=== PATIENT | female | born 1985 | race Caucasian/White ===

== ENCOUNTER → 2020-07-14 15:53 | Outpatient (BNVA) | payer BC, SELFPAY | PROVIDERS: PCP Family Medicine; Visit Provider Physician Assistant ==

== ENCOUNTER → 2020-07-15 07:10 | Outpatient (BNVA) | payer BC, SELFPAY | PROVIDERS: PCP Family Medicine; Visit Provider Surgery ==

== ENCOUNTER → 2020-07-27 14:57 | Outpatient (REF) | payer BC, SELFPAY ==
--- NOTE | ~2020-07-27 | XR_ITS ---
EXAMINATION: XR CHEST CLINICAL INFORMATION: Obesity COMPARISON: None TECHNIQUE: 2 views of the chest were obtained. FINDINGS: No significant abnormality is noted involving the heart, lungs, mediastinum, bony thorax or soft tissues. XR/XR chest 2V IMPRESSION: Unremarkable examination.
--- NOTE | 2020-07-27 15:52 | ECG_ITS ---
Test Reason : MORBID OBESITY Blood Pressure : / mmHG Vent. Rate : 082 BPM Atrial Rate : 082 BPM P-R Int : 128 ms QRS Dur : 082 ms QT Int : 368 ms P-R-T Axes : 041 050 013 degrees QTc Int : 429 ms Normal sinus rhythm Nonspecific T wave changes Borderline ECG No previous ECGs available Referred By: Taqueria Leal Electronically Signed By:Benny Gautam
[2020-07-28 14:26] LABS: H Pylori Breath Test NOT DETECTED (NOT DETECTED)
== END ==
LOC: HO.CARD 14:57
PROVIDERS: Absent Provider Surgery; PCP Family Medicine; Visit Provider Physician Assistant
DX: E66.01 Morbid (severe) obesity due to excess calories (principal); K21.9 Gastro-esophageal reflux disease without esophagitis; G47.10 Hypersomnia, unspecified
CPT/HCPCS: 71046; 83013; 93005

== ENCOUNTER → 2020-08-07 08:05 | Outpatient (BNVA) | payer BC, SELFPAY | PROVIDERS: PCP Family Medicine; Visit Provider Surgery ==

== ENCOUNTER → 2020-08-14 08:14 | Outpatient (BNVA) | payer BC, SELFPAY | PROVIDERS: PCP Family Medicine; Visit Provider Dietitian, Registered | DX: E66.01 Morbid (severe) obesity due to excess calories (principal) | CPT/HCPCS: 97802 ==

== ENCOUNTER → 2020-09-02 08:44 | Outpatient (BNVA) | payer BC, SELFPAY | PROVIDERS: PCP Family Medicine; Visit Provider Surgery ==

== ENCOUNTER 2020-09-05 07:46 | Outpatient (REF) | payer BC, SELFPAY ==
[2020-09-05 08:38] LABS: MANUAL DIFF FLAG NO
[2020-09-05 08:50] LABS: Basophils Absolute Auto 0.1 X10*3/uL (0.0-0.2); Basophils Percent Auto 0.7 % (0-2); Eosinophils Absolute Auto 0.1 X10*3/uL (0.0-0.4); Eosinophils Percent Auto 0.8 % (0-4); Hemoglobin 12.4 g/dl (12.0-16.0); Imm Gran Abs Auto 0.03 X10*3/uL (0.00-0.03); Imm Gran Pct Auto 0.3 % (0.0-0.4); Lymphocytes Absolute Auto 2.2 X10*3/uL (1.2-4.9); Lymphocytes Percent Auto 22.4 % (20-40); Mean Corpuscular Hemoglobin 24.7 pg (27.0-33.0); Mean Corpuscular Volume 79.7 fL (80-98); Mean Platelet Volume 10.8 fL (9.4-12.3); Monocytes Absolute Auto 0.7 X10*3/uL (0.1-1.2); Monocytes Percent Auto 7.4 % (2-11); Neutrophils Absolute Auto 6.7 X10*3/uL (2.0-8.3); Neutrophils Percent Auto 68.4 % (45-73); Platelet Count 391 X10*3/uL (160-400); Red Blood Count 5.02 X10*6/uL (4.20-5.50); Red Cell Distribution Width 15.8 % (11.0-16.0); White Blood Count 9.8 X10*3/uL (4.8-10.8)
[2020-09-05 09:41] LABS: Alanine Aminotransferase 14 U/L (0-31); Albumin Level 4.4 g/dL (3.5-5.0); Alkaline Phosphatase 98 U/L (39-117); Anion Gap 10 (12-20); Aspartate Amino Transferase 14 U/L (5-31); Bilirubin Total 0.4 mg/dL (0.0-1.0); Blood Urea Nitrogen 13 mg/dL (9-16); C Reactive Protein 2.33 mg/dL (< or = 0.50); Calcium 9.2 mg/dL (8.4-10.2); Carbon Dioxide 30 mmol/L (22-29); Chloride 105 mmol/L (96-108); Cholesterol 180 mg/dL; Estimated Glomerular Filt Rate > 60; Glucose Random 105 mg/dL (60-115); HDL Cholesterol 38 mg/dL; LDL Cholesterol Calculated 128 mg/dl; Potassium 4.3 mmol/L (3.3-5.1); Sodium 141 mmol/L (135-145); Total Protein 6.7 g/dL (6.5-8.0); Triglycerides 71 mg/dL
[2020-09-05 09:49] LABS: Estimated Average Glucose 120 mg/dL; Hemoglobin A1c % 5.8 %; TSH reflex Free T4 1.41 uIU/mL (0.32-4.0); Vitamin D 25-OH Total 49.8 ng/mL (>30)
[2020-09-05 10:44] LABS: Ferritin 20 ng/mL (10-122)
[2020-09-07 09:03] LABS: Vitamin B12 562 pg/mL (200-900)
[2020-09-07 13:16] LABS: Calcium (PTHI) 9.3 mg/dL (8.6-10.2); PTHI 53 pg/mL (14-64)
[2020-09-07 15:17] LABS: Insulin Level Total 13.2 uIU/mL
[2020-09-08 16:12] LABS: Zinc 70 mcg/dL (60-130)
[2020-09-08 21:22] LABS: Vitamin A 34 mcg/dL (38-98)
[2020-09-10 10:08] LABS: Vitamin B1 13 nmol/L (8-30)
== END 2020-09-05 07:47 | disposition home or self-care (01) ==
LOC: HO.LAB 07:46
PROVIDERS: Visit Provider Surgery
DX: E66.01 Morbid (severe) obesity due to excess calories (principal); G47.10 Hypersomnia, unspecified; K21.9 Gastro-esophageal reflux disease without esophagitis
CPT/HCPCS: 36415; 80053; 80061; 82306; 82607; 82728; 82746; 83036; 83525; 83970; 84425; 84443; 84590; 84630; 85025; 86140

== ENCOUNTER → 2020-09-08 08:06 | Outpatient (BNVA) | payer BC, SELFPAY | PROVIDERS: PCP Family Medicine; Visit Provider Dietitian, Registered | DX: E66.01 Morbid (severe) obesity due to excess calories (principal); Z68.42 Body mass index [BMI] 45.0-49.9, adult | CPT/HCPCS: 97803 ==

== ENCOUNTER → 2020-09-10 13:57 | Outpatient (REF) | payer BC, SELFPAY ==
--- NOTE | 2020-09-10 14:00 | CA_ITS ---
Transthoracic Echocardiogram Patient (Last, First, Middle): Carolyn Shen, Gender: Female Date of : 1985 Age: 35 Procedure Date: 09/10/2020 Procedure Type: Transthoracic Echocardiogram Location: OP Height: 175.26 cm Weight: 140.62 kg BSA: 2.49 m2 Heart Rate: bpm BP: 118 / 78 mmHg Colorist Dyer: VALDO Zamudio MD: Taqueria Leal MD Wall Washer: Keo Harmon MD Symptoms: R94.31 - Abnormal electrocardiogram [ECG] [EKG] Study Quality: Technically Difficult ECG Rhythm: Sinus Conclusions: - 1. Normal LV systolic and diastolic function 2. Normal cardiac valvular Doppler 3. No gross pericardial effusion Findings Left Ventricle Normal left ventricular size, thickness, and systolic function. The visually estimated ejection fraction is between 60-65%. Diastolic function is normal for age. Right Ventricle The right ventricle was not well visualized. Atria The left atrium is normal in size. Interatrial shunt cannot be excluded. The right atrium was not well visualized. Aortic Valve The aortic valve structure and function is likely normal. There is no aortic valve stenosis. There is no aortic valve regurgitation. Mitral Valve Likely normal mitral valve structure and function. There is trace mitral valve regurgitation. There is no mitral valve stenosis. Pulmonic Valve The pulmonic valve was not well visualized. Tricuspid Valve The tricuspid valve was not well visualized. The right ventricular systolic pressure is not calculated. Great Vessels All visible segments of the aorta are normal in size. The pulmonary artery was not well visualized. Venous The inferior vena cava is normal in size and collapses greater than 50% with inspiration. Pericardium/Pleural There is no evidence of pericardial effusion. Prior Study Comparison No prior study available for comparison. Measurements M-Mode Liner Measurements Normals - Women/Men AOV Cusps: 2.00 1.5-2.6 cm/m2 2D Linear Measurements IVSd: 1.00 0.6-0.9/0.6-1.0 cm LVIDd: 4.51 3.9-5.3/4.2-5.9 cm LVIDd Index: 1.81 2.4-3.2/2.2-3.1 cm/m2 LVIDs: 2.79 2.0-3.6 cm LVPWd: 0.92 0.7-1.1 cm Ao Root: 2.60 2.1-3.5 cm LA Diam: 4.10 2.7-3.8/3.0-4.0 cm LAIDs Index: 1.65 1.5-2.3 cm/m2 LV Mass: 180.69 67-162/88-224 g LV Mass Index: 72.57 43-95/49-115 g/m2 LVOT Diam: 2.10 3.0+(-)1.3 cm 2D Systolic Function EF 4C: 67.30 >55% EF 2C: 64.40 >55% EF BiP: 64.00 >55% Mitral Valve MV Pk E: 0.77 MV PK A: 0.55 MV Decel Time: 278.00 E/A: 1.40 E'Lateral: 19.40 E'Medial: 9.46 E/E' Med: 8.10 E/E' Lat: 3.90 PHT: 81.00 MVA PHT: 2.72 Decel [place]: 2.76 Aortic Valve AoV Pk Gadiel: 1.78 AoV Mn Gadiel: 1.32 AoV VTI: 0.38 AoV Pk Grad: 13.00 Aov Mn Grad: 8.00 YANELY Cont.VTI: 2.02 LVOT LVOT Pk Gadiel: 1.14 LVOT Mn Gadiel: 0.79 LVOT VTI: 0.22 LVOT Pk Grad: 5.00 LVOT Mn Grad: 3.00 LVOT Diam: 2.10 LVOT Area: 3.46 Diastolic Function MV Pk E: 0.77 MV Pk A: 0.55 E/A: 1.40 E'Medial: 9.46 E/E' Med: 8.10 E' Laterial: 19.40 E/E' Lat: 3.90 Tricuspid Valve TR Pk Gadiel: 2.12 TR Pk Grad: 18.00 Great Vessels Aorta Ao Root-2D: 2.60 2.0-3.7 cm Ao Asc: 2.80 2.1-3.4 cm Ao Arch: 3.00 Pulmonary Valve PV Pk Gadiel: 1.29 Peak PV Grad: 7.00 Updated in Other Vendor System with Status of Final Keo Harmon MD electronically signed on 09/11/2020 2:48:49 PM with status of Final
== END ==
LOC: HO.CARD 13:57
PROVIDERS: Visit Provider Surgery
DX: Z01.818 Encounter for other preprocedural examination (principal); R06.02 Shortness of breath; I10 Essential (primary) hypertension; R94.31 Abnormal electrocardiogram [ECG] [EKG]
CPT/HCPCS: 93306; Q9957

== ENCOUNTER 2020-10-19 08:59 | Outpatient (REF) | payer BC, SELFPAY ==
--- NOTE | ~2020-10-19 | FL_ITS ---
EXAMINATION: XR GI SERIES CLINICAL INFORMATION: Morbid/severe obesity due to excess calories. COMPARISON: None. TECHNIQUE: Routine upper GI air-contrast study was performed. FINDINGS: Following oral administration of thick barium and effervescent granules, there is normal propagation of bolus from the oral cavity through the pharynx and esophagus and into the stomach without any evidence of obstruction, narrowing or stricture. On placing patient supine and prone lying, the course, caliber and peristalsis of stomach are normal. There is mild gastroesophageal reflux into the midesophagus. The mucosal pattern of the esophagus, stomach and the duodenum is normal. FLUOROSCOPY TIME: 1.6 minutes DOSE AREA PRODUCT: 65.369 Gy-cm2. FL/FL upper GI series IMPRESSION: Mild gastroesophageal reflux without hiatal hernia.
--- NOTE | ~2020-10-19 | US_ITS ---
EXAMINATION: US COMPLETE ABDOMEN WITH LIVER ELASTOGRAPHY CLINICAL INFORMATION: Obesity COMPARISON: None. TECHNIQUE: Real-time imaging of the abdominal viscera. Noninvasive ultrasound liver fibrosis assessment is performed using Osmar ElastPQ point quantification shear wave elastography (pSWE) with a C5-2 MHz transducer. Multiple elastography samples are obtained. FINDINGS: PANCREAS: Not well visualized due to overlying bowel gas. ABDOMINAL AORTA: The proximal, middle, and distal aortic segments are normal in caliber. INFERIOR VENA CAVA: Visualized portions are normal. LIVER: Liver echotexture is slightly increased. The liver demonstrates normal size and contour. No focal lesion or intrahepatic biliary duct dilatation. The right lobe measures 15.6 cm in length. The left lobe measures 14.1 cm in length. Portal flow is normal/hepatopedal. Shear wave liver elastography median stiffness is 1.3 m/s (reference: normal median stiffness is 1.3 m/s or less). IQR/median stiffness to assess sampling precision is 0.1 (reference: good quality data set is IQR/median stiffness of 0.15 or less). GALLBLADDER: Normal. The gallbladder is physiologically distended without evidence of stones, sludge, polyps, wall thickening or pericholecystic fluid. COMMON BILE DUCT: Normal in caliber measuring 0.3 cm in diameter. RIGHT KIDNEY: Normal. No hydronephrosis. No renal calculi or focal parenchymal lesions. The kidney measures 10.8 cm in maximum dimension. LEFT KIDNEY: Normal. No hydronephrosis. No renal calculi or focal parenchymal lesions. The kidney measures 11.6 cm in maximum dimension. SPLEEN: Normal. The spleen measures 12.5cm in maximum dimension. FREE FLUID: None. US/US abdomen comp w elastography IMPRESSION: 1. Impression: Slightly echogenic liver probably representing fatty infiltration. Poor visualization of the pancreas. Otherwise unremarkable exam. 2. Liver elastography: No sampling error. Normal liver stiffness. REFERENCE: Society of Radiologists in Ultrasound Liver Stiffness Thresholds (2020): LIVER STIFFNESS THRESHOLDS: *Liver Stiffness equal or less than 1.3 m/s: High probability of being normal. *Liver Stiffness less than 1.7 m/s: In the absence of other known clinical signs, rules out compensated advanced chronic liver disease. *Liver Stiffness 1.7-2.1 m/s: Suggestive of compensated advanced chronic liver disease but need further test for confirmation. *Liver Stiffness over 2.1 m/s: Rules in compensated advanced chronic liver disease. *Liver Stiffness over 2.4 m/s: Suggestive of clinically significant portal hypertension. QUALITY OF DATA SET: *IQR/Median value equal or less than 0.15 implies a quality data set. *IQR/Median value over 0.15 implies a poor quality data set. SIGNIFICANT CHANGE FROM PRIOR EXAM: Significant change if liver stiffness measurement is 10% or greater from prior exam. OTHER CONSIDERATIONS: The stage of liver fibrosis may be overestimated in the setting of acute hepatitis, liver inflammation, elevated liver function tests, hepatic vascular congestion, obstructive cholestasis, non-fasting state, and infiltrative diseases such as amyloidosis and lymphoma. In some patients with NAFLD, the liver stiffness thresholds for compensated advanced chronic liver disease may be lower. In causes other than viral hepatitis and NAFLD, liver stiffness thresholds are not well established.
== END 2020-10-19 09:00 | disposition home or self-care (01) ==
LOC: HO.US 08:59
PROVIDERS: Visit Provider Surgery
DX: G47.10 Hypersomnia, unspecified (principal); E66.01 Morbid (severe) obesity due to excess calories
CPT/HCPCS: 74240; 76705; 76981

== ENCOUNTER → 2020-10-19 10:16 | Outpatient (REF) | payer BC, SELFPAY ==
--- NOTE | 2020-10-19 10:22 | CA_ITS ---
Acquisition Time: 2020-10-19 10:39:24 Total Exercise Time: 00:06:00 Test Indications: ABN EKG Medications: SEE CHART Protocol: SERAFIN Max HR: 164 BPM 88% of Pred: 186 BPM Max BP: 162/082 mmHG Max Work Load: 7.2 METS Exercise stress test with exercise 6 min of Serafin protocol, with mild sob, no chest discomfort, without arrythmia, with normotensive response to exercise, without EKG changes meeting criteria for ischemia. Test reviewed with Dr Gautam. Referred By: Taqueria Leal Overread By: VINCENT CHA
== END ==
LOC: HO.CARD 10:16
PROVIDERS: Visit Provider Surgery
DX: Z01.818 Encounter for other preprocedural examination (principal); R06.02 Shortness of breath; I10 Essential (primary) hypertension; R94.31 Abnormal electrocardiogram [ECG] [EKG]
CPT/HCPCS: 93017